=== PATIENT | male | born 1995 | race Caucasian/White ===

== ENCOUNTER 2016-10-30 16:37 | Emergency (ER) | payer BC ==
[2016-10-30 17:00] VITALS: BP 106/71
--- NOTE | 2016-10-30 17:29 | UC ---
Throat Pain/Nasal Duran HPI - HPI Summary HPI Summary: 21 yo male with a 1 day hx of f/c, st, MCELROY, myalgias exposed to strep 5 days ago no n/v/d - History of Current Complaint Chief Complaint: UCGeneralIllness Stated Complaint: BODY ACHES,FEVER,THROAT Time Seen by Provider: 10/30/16 17:23 Hx Obtained From: Patient Onset/Duration: Gradual Onset, Lasting Hours Severity: Moderate Pain Intensity: 4 Pain Scale Used: 0-10 Numeric Cough: None Associated Signs & Symptoms: Positive: Fever - Epiglottits Risk Factors Epiglottis Risk Factors: Negative - Allergies/Home Medications Allergies/Adverse Reactions: Allergies Allergy/AdvReac Type Severity Reaction Status Date / Time No Known Allergies Allergy Verified 10/30/16 16:56 PMH/Surg Hx/FS Hx/Imm Hx Previously Healthy: Yes Other History Of: Negative For: HIV, Hepatitis B, Hepatitis C, Anticoagulant Therapy - Surgical History Surgical History: Yes Surgery Procedure, Year, and Place: appendectomy - Family History Known Family History: Positive: Cardiac Disease Negative: Diabetes - Social History Alcohol Use: Occasionally Substance Use Type: None Smoking Status (MU): Never Smoked Tobacco Have You Smoked in the Last Year: No - Immunization History Most Recent Influenza Vaccination: NONE Most Recent Tetanus Shot: UTD Review of Systems Constitutional: Fever, Chills, Fatigue Skin: Negative Eyes: Negative ENT: Sore Throat Respiratory: Negative Cardiovascular: Negative Gastrointestinal: Negative Genitourinary: Negative Motor: Negative Neurovascular: Negative Musculoskeletal: Negative Neurological: Headache Psychological: Negative All Other Systems Reviewed And Are Negative: Yes Physical Exam Triage Information Reviewed: Yes Appearance: Well-Appearing, No Pain Distress, Well-Nourished Vital Signs: Initial Vital Signs Temp 99 F 10/30/16 16:56 Pulse 90 10/30/16 16:56 Resp 16 10/30/16 16:56 BP 106/71 10/30/16 16:56 Pulse Ox 99 10/30/16 16:56 Vital Signs Reviewed: Yes Eyes: Positive: Conjunctiva Clear ENT: Positive: Hearing grossly normal, Pharyngeal erythema, Tonsillar swelling, Tonsillar exudate. Negative: Nasal congestion, Nasal drainage, Trismus, Muffled /hoarse voice Neck: Positive: Supple, Nontender, Enlarged Nodes @ - ant cerv Respiratory: Positive: Lungs clear, Normal breath sounds, No respiratory distress, No accessory muscle use Cardiovascular: Positive: RRR, No Murmur Musculoskeletal: Positive: ROM Intact, No Edema Neurological: Positive: Alert Psychological Exam: Normal Skin Exam: Normal Throat Pain/Nasal Course/Dx - Course Course Of Treatment: rs (-) - Differential Dx/Diagnosis Provider Diagnoses: acute tonsillitis. exposure to strep throat Discharge - Discharge Plan Condition: Stable Disposition: HOME Prescriptions: Amoxicillin PO (*) [Amoxicillin 875 MG (*)] 875 mg PO BID #20 tab Patient Education Materials: Tonsillitis (ED) Forms: *Work Release Referrals: Robbin Matson MD [Primary Care Provider] - If Needed Additional Instructions: recheck in 3 days if not better
== END 2016-10-30 17:42 | disposition home or self-care (01) ==
LOC: UCCORT 16:37
DX: J03.90 Acute tonsillitis, unspecified (principal); Z20.89 Contact with and (suspected) exposure to other communicable diseases
CPT/HCPCS: 87651; 99212; G0463

== ENCOUNTER 2016-11-02 15:04 | Emergency (ER) | payer BC ==
[2016-11-02 15:51] VITALS: BP 127/83
--- NOTE | 2016-11-02 16:45 | UC ---
Skin Complaint HPI - HPI Summary HPI Summary: Pt reports that he had sudden onset of "blister, pimple" at distal end of penis. Pt reports that he has a new sexual partner and had "rough" intercourse with new partner and sustained a "few" abrasions to the end of the penis. Pt reports that the blister, pimle" was non tender and that he "popped" it and had small amount of serous fluid drained. - History of Current Complaint Chief Complaint: UCGU Time Seen by Provider: 11/02/16 15:46 Stated Complaint: PERSONAL Hx Obtained From: Patient Onset/Duration: Sudden Onset, Still Present Skin Exposure Onset/Duration: Days Ago Timing: Constant Onset Severity: Mild Current Severity: Mild Pain Intensity: 0 Pain Scale Used: 0-10 Numeric Location: Discrete - distal end penis Aggravating: Nothing Alleviating: Nothing Associated Signs & Symptoms: Positive: Drainage - clear Related History: Trauma - rough sexual intercourse - Allergy/Home Medications Allergies/Adverse Reactions: Allergies Allergy/AdvReac Type Severity Reaction Status Date / Time No Known Allergies Allergy Verified 11/02/16 15:51 Review of Systems Constitutional: Negative Skin: Other - abrasions, and drained, blister/pimple Eyes: Negative ENT: Negative Respiratory: Negative Cardiovascular: Negative Gastrointestinal: Negative Genitourinary: Negative Motor: Negative Neurovascular: Negative Musculoskeletal: Negative Neurological: Negative Psychological: Negative All Other Systems Reviewed And Are Negative: Yes PMH/Surg Hx/FS Hx/Imm Hx Previously Healthy: Yes Other History Of: Negative For: HIV, Hepatitis B, Hepatitis C, Anticoagulant Therapy - Surgical History Surgical History: Yes Surgery Procedure, Year, and Place: appendectomy - Family History Known Family History: Positive: Cardiac Disease Negative: Diabetes - Social History Alcohol Use: Occasionally Substance Use Type: None Smoking Status (MU): Never Smoked Tobacco Have You Smoked in the Last Year: No - Immunization History Most Recent Influenza Vaccination: NONE Most Recent Tetanus Shot: UTD Physical Exam Triage Information Reviewed: Yes Appearance: Well-Appearing Vital Signs: Initial Vital Signs Temp 98.4 F 11/02/16 15:43 Pulse 92 11/02/16 15:43 Resp 14 11/02/16 15:43 BP 127/83 11/02/16 15:43 Pulse Ox 100 11/02/16 15:43 Neck exam: Normal Neck: Positive: No Lymphadenopathy Respiratory: Positive: No respiratory distress Musculoskeletal Exam: Normal Neurological Exam: Normal Psychological Exam: Normal Skin Exam: Other - four small healing wounds, non tender, ~2mm in width distal dorsal side of penis. No noted chancre or fluid filled vessicles. Course/Dx - Differential Diagnoses - Skin Complaint Differential Diagnoses: Other - abrasion, syphilis, herpes, - Diagnoses Provider Diagnoses: abrasions- healing wounds. syphilis? Herpes? Discharge - Discharge Plan Condition: Stable Disposition: HOME Patient Education Materials: Safe Sex (ED), Skin Tear (ED) Referrals: Robbin Matson MD [Primary Care Provider] -
[2016-11-04 11:31] LABS: Syphilis Index < 0.1 Index
[2016-11-04 14:44] LABS: Herpes Simplex Virus I IgG AB Negative (Negative); Herpes Simplex Virus II IgG AB Negative (Negative)
== END 2016-11-02 16:32 | disposition home or self-care (01) ==
LOC: UCCORT 15:04
DX: S30.812A Abrasion of penis, initial encounter (principal); Y93.83 Activity, rough housing and horseplay; Y93.59 Activity, other involving other sports and athletics played individually; Y92.003 Bedroom of unspecified non-institutional (private) residence as the place of occurrence of the external cause; Y99.8 Other external cause status
CPT/HCPCS: 36415; 86592; 86695; 86696; 99211; G0463

== ENCOUNTER 2017-01-02 19:37 | Emergency (ER) | payer BC ==
[2017-01-02 19:47] VITALS: BP 136/71
[2017-01-02] MEDS ORDERED: cefTRIAXone VIAL(*) 250 MG VIAL IM ONE (20:57)
[2017-01-02] MEDS ORDERED: Azithromycin TAB* 250 MG PO ONE (20:58)
[2017-01-02] MEDS ORDERED: Lidocaine 1% MPF* 2 ML VIAL INJ ONE (20:58)
--- NOTE | 2017-01-02 22:01 | UC ---
Complaint Male HPI - HPI Summary HPI Summary: YESTERDAY BEGAN HAVING THICK [place]QUE PENILE DISCHARGE, OCCASIONAL DISCOMFORT WITH URINATION. NO FEVER. NO BACK PAIN. NO NEW SEXUAL PARTNERS, BUT CONCERN AND SUSPICION (RUMOR) THAT BOYFRIEND MAY BE CHEATING ON HIM. - History of Current Complaint Chief Complaint: UCSTDScreening Stated Complaint: PERSONAL Time Seen by Provider: 01/02/17 20:46 Hx Obtained From: Patient Onset/Duration: Gradual Onset, Lasting Days, Still Present Timing: Intermittent Severity Initially: Mild Severity Currently: Mild Pain Intensity: 0 Pain Scale Used: 0-10 Numeric Location: Penis Character: Burning Aggravating Factor(s): Voiding Alleviating Factor(s): Nothing Associated Signs And Symptoms: Positive: Dysuria - MILD, Penile Discharge. Negative: Back Pain, Fever, Hematuria, Constipation, Blood in Stool, Rectal Pain , Appetite, Nausea, Vomiting(# Of Episodes =) - Allergies/Home Medications Allergies/Adverse Reactions: Allergies Allergy/AdvReac Type Severity Reaction Status Date / Time No Known Allergies Allergy Verified 01/02/17 19:47 Home Medications: Home Medications NK [No Home Medications Reported] 01/02/17 [History Confirmed 01/02/17] PMH/Surg Hx/FS Hx/Imm Hx Previously Healthy: Yes Other History Of: Negative For: HIV, Hepatitis B, Hepatitis C, Anticoagulant Therapy - Surgical History Surgical History: Yes Surgery Procedure, Year, and Place: appendectomy - Family History Known Family History: Positive: Cardiac Disease Negative: Diabetes - Social History Alcohol Use: Occasionally Substance Use Type: None Smoking Status (MU): Never Smoked Tobacco Have You Smoked in the Last Year: No - Immunization History Most Recent Influenza Vaccination: NONE Most Recent Tetanus Shot: UTD Review of Systems Constitutional: Negative Skin: Negative Eyes: Negative ENT: Negative Respiratory: Negative Cardiovascular: Negative Gastrointestinal: Negative Genitourinary: Dysuria, Other - PENILE DISCHARGE Motor: Negative Neurovascular: Negative Musculoskeletal: Negative Neurological: Negative Psychological: Negative Is Patient Immunocompromised?: No All Other Systems Reviewed And Are Negative: Yes Physical Exam Triage Information Reviewed: Yes Appearance: Well-Appearing, No Pain Distress, Well-Nourished Vital Signs: Initial Vital Signs Temp 97.8 F 01/02/17 19:40 Pulse 83 01/02/17 19:40 Resp 16 01/02/17 19:40 BP 136/71 01/02/17 19:40 Pulse Ox 100 01/02/17 19:40 Vital Signs Reviewed: Yes Eye Exam: Normal ENT Exam: Normal Dental Exam: Normal Neck exam: Normal Neck: Positive: Supple, Nontender, No Lymphadenopathy. Negative: Nuchal Rigidity, Tenderness @, Enlarged Nodes @ Respiratory Exam: Normal Respiratory: Positive: Chest non-tender, Lungs clear, Normal breath sounds, No respiratory distress, No accessory muscle use Cardiovascular Exam: Normal Cardiovascular: Positive: RRR, No Murmur, Pulses Normal, Brisk Capillary Refill Abdominal Exam: Normal Abdomen Description: Positive: Nontender, No Organomegaly, Soft, Other: - NO LESIONS ON PENIS, NO TESTICULAR TENDERNESS; NO DISCHARGE EVIDENT AT TIME OF EXAM. Negative: CVA Tenderness (R), CVA Tenderness (L) Bowel Sounds: Positive: Present Musculoskeletal Exam: Normal Neurological Exam: Normal Psychological Exam: Normal Skin Exam: Normal Skin: Negative: rashes, breakdown Complaint Male Course/Dx - Differential Dx/Diagnosis Differential Diagnosis/HQI/PQRI: Epididymitis, Prostatitis, Pyelonephritis, Trauma, Urinary Tract Infection, Other - STD Provider Diagnoses: PENILE DISCHARGE; STD (GC/CHLYMIDIA) PROPHYLAXIS. Discharge - Discharge Plan Condition: Stable Disposition: HOME Patient Education Materials: Chlamydia (ED), Sexually Transmitted Diseases (ED) , Gonorrhea (ED) Referrals: Robbin Matson MD [Primary Care Provider] -
== END 2017-01-02 21:38 | disposition home or self-care (01) ==
LOC: UCCORT 19:37
DX: R36.9 Urethral discharge, unspecified (principal); Z11.4 Encounter for screening for human immunodeficiency virus [HIV]; Z11.3 Encounter for screening for infections with a predominantly sexual mode of transmission
CPT/HCPCS: 36415; 81003; 86703; 87086; 87491; 87591; 96372; 99212; A9270-GY; G0463; J0696

== ENCOUNTER 2017-03-26 17:37 | Emergency (ER) | payer BC ==
[2017-03-26 18:25] VITALS: BP 104/71
--- NOTE | 2017-03-26 19:53 | UC ---
Throat Pain/Nasal Duran HPI - HPI Summary HPI Summary: Pt c/o sore throat, MCELROY nasal congestion and generalized malaise X 3 days. - History of Current Complaint Chief Complaint: UCGeneralIllness Stated Complaint: ST,MCELROY Time Seen by Provider: 03/26/17 19:46 Hx Obtained From: Patient Onset/Duration: Gradual Onset, Lasting Days, Still Present Severity: Mild Associated Signs & Symptoms: Positive: Dysphagia, Fever - Epiglottits Risk Factors Epiglottis Risk Factors: Negative - Allergies/Home Medications Allergies/Adverse Reactions: Allergies Allergy/AdvReac Type Severity Reaction Status Date / Time No Known Allergies Allergy Verified 01/02/17 19:47 Home Medications: Home Medications Acetaminophen [Acetaminophen Extra Stren] 1,000 mg PO Q6H PRN 03/26/17 [History Confirmed 03/26/17] PMH/Surg Hx/FS Hx/Imm Hx Previously Healthy: Yes Other History Of: Negative For: HIV, Hepatitis B, Hepatitis C, Anticoagulant Therapy - Surgical History Surgical History: Yes Surgery Procedure, Year, and Place: appendectomy - Family History Known Family History: Positive: Cardiac Disease Negative: Diabetes - Social History Occupation: Employed Full-time Lives: With Family Alcohol Use: Occasionally Substance Use Type: None Smoking Status (MU): Never Smoked Tobacco Have You Smoked in the Last Year: No - Immunization History Most Recent Influenza Vaccination: NONE Most Recent Tetanus Shot: UTD Review of Systems Constitutional: Fever, Chills, Fatigue Skin: Negative Eyes: Negative ENT: Sore Throat Respiratory: Negative Cardiovascular: Negative Gastrointestinal: Negative Genitourinary: Negative Motor: Negative Neurovascular: Negative Musculoskeletal: Negative Neurological: Negative Psychological: Negative Is Patient Immunocompromised?: No All Other Systems Reviewed And Are Negative: Yes Physical Exam Triage Information Reviewed: Yes Appearance: Well-Appearing Vital Signs: Initial Vital Signs Temp 98.4 F 03/26/17 18:19 Pulse 75 03/26/17 18:19 Resp 20 03/26/17 18:19 BP 104/71 03/26/17 18:19 Pulse Ox 100 03/26/17 18:19 Eye Exam: Normal ENT Exam: Other ENT: Positive: Pharyngeal erythema Dental Exam: Normal Neck exam: Normal Respiratory Exam: Normal Cardiovascular Exam: Normal Musculoskeletal Exam: Normal Neurological Exam: Normal Psychological Exam: Normal Skin Exam: Normal Throat Pain/Nasal Course/Dx - Differential Dx/Diagnosis Differential Diagnosis/HQI/PQRI: Mononucleosis, Pharyngitis, URI Provider Diagnoses: PHaryngitis. viral syndrome Discharge - Discharge Plan Condition: Stable Disposition: HOME Patient Education Materials: Pharyngitis (ED) Forms: *Work Release Referrals: Robbin Matson MD [Primary Care Provider] - If Needed
== END 2017-03-26 19:58 | disposition home or self-care (01) ==
LOC: UCCORT 17:37
DX: J02.9 Acute pharyngitis, unspecified (principal); B34.9 Viral infection, unspecified
CPT/HCPCS: 87651; 99211; G0463

== ENCOUNTER 2017-04-24 11:09 | Emergency (ER) | payer BC ==
[2017-04-24 11:34] VITALS: BP 124/54
--- NOTE | 2017-04-24 12:53 | UC ---
General HPI - HPI Summary HPI Summary: Had a recent partner who is HIV positive (undetectable viral levels last contact a couple of months ago)-used an at home kit that was HIV - but wants a real test done-Is interested in going back on PreP was getting Prep through Dr. Antony in [place] (baseline labs will be obtained) - History of Current Complaint Chief Complaint: UCGeneralIllness Stated Complaint: PERSONAL Time Seen by Provider: 04/24/17 12:45 Hx Obtained From: Patient Current Severity: None - Allergy/Home Medications Allergies/Adverse Reactions: Allergies Allergy/AdvReac Type Severity Reaction Status Date / Time No Known Allergies Allergy Verified 04/24/17 11:25 PMH/Surg Hx/FS Hx/Imm Hx Previously Healthy: Yes Other History Of: Negative For: HIV, Hepatitis B, Hepatitis C, Anticoagulant Therapy - Surgical History Surgical History: Yes Surgery Procedure, Year, and Place: appendectomy - Family History Known Family History: Positive: Cardiac Disease Negative: Diabetes - Social History Occupation: Employed Full-time Lives: Alone Alcohol Use: Occasionally Substance Use Type: None Smoking Status (MU): Never Smoked Tobacco Have You Smoked in the Last Year: No - Immunization History Most Recent Influenza Vaccination: NONE Most Recent Tetanus Shot: UTD Review of Systems Constitutional: Negative Skin: Negative Eyes: Negative ENT: Negative Respiratory: Negative Cardiovascular: Negative Gastrointestinal: Negative Genitourinary: Negative Motor: Negative Neurovascular: Negative Musculoskeletal: Negative Neurological: Negative Psychological: Negative Is Patient Immunocompromised?: No All Other Systems Reviewed And Are Negative: Yes Physical Exam Triage Information Reviewed: Yes Appearance: Well-Appearing, No Pain Distress, Well-Nourished Vital Signs: Initial Vital Signs Temp 97.9 F 04/24/17 11:17 Pulse 93 04/24/17 11:17 Resp 20 04/24/17 11:17 BP 124/54 04/24/17 11:17 Vital Signs Reviewed: Yes Eye Exam: Normal Eyes: Positive: Conjunctiva Clear ENT Exam: Normal ENT: Positive: Normal ENT inspection, Hearing grossly normal, Pharynx normal. Negative: Trismus, Muffled voice, Hoarse voice, Dental tenderness Dental Exam: Normal Neck exam: Normal Neck: Positive: Supple, Nontender, No Lymphadenopathy Respiratory Exam: Normal Respiratory: Positive: No respiratory distress, No accessory muscle use Cardiovascular Exam: Normal Cardiovascular: Positive: RRR, Pulses Normal, Brisk Capillary Refill Musculoskeletal Exam: Normal Musculoskeletal: Positive: Strength Intact, ROM Intact, No Edema Neurological Exam: Normal Neurological: Positive: Alert, Muscle Tone Normal Psychological Exam: Normal Skin Exam: Normal Course/Dx - Course Course Of Treatment: lab studies as planned, follow with Dr. Cassia RUTH for Pre-p - Differential Dx - Multi-Symptom Provider Diagnoses: HIV Exposure Discharge - Discharge Plan Condition: Stable Disposition: HOME Patient Education Materials: Condom Use (ED), Normal Exam (ED) Forms: *Work Release Referrals: Robbin Matson MD [Primary Care Provider] - As Soon As Possible
[2017-04-24 19:58] LABS: EGFR Non-African American 93.7 (>60)
--- NOTE | 2017-04-25 07:35 | UC ---
- Progress Note Progress Note: BMP is nml - needed for baseline for PCP. Labs were cc'd to Dr Matson. Course/Dx - Course Course Of Treatment: lab studies as planned, follow with Dr. Cassia RUTH for Pre-p
--- NOTE | 2017-04-27 09:03 | UC ---
- Progress Note Progress Note: call patient. rpr for syphyllis is (+). needs [facility]. Course/Dx - Course Course Of Treatment: lab studies as planned, follow with Dr. Cassia RUTH for Pre-p
== END 2017-04-24 13:31 | disposition home or self-care (01) ==
LOC: UCCORT 11:09
DX: Z20.6 Contact with and (suspected) exposure to human immunodeficiency virus [HIV] (principal)
CPT/HCPCS: 36415; 80048; 81003; 86592; 86703; 86803; 87491; 87591; 99211; G0463

== ENCOUNTER 2017-05-27 12:24 | Emergency (ER) | payer BC ==
--- OUTSIDE RECORDS SUMMARY | 2017-05-27 12:41 | XMS REPORT ---
:1995 External Reference #:[id number] [facility] Address [address] [place] [id number] Phone [phone] Care Team Providers Name Role Phone Robbin Matson MD Primary Care Physician Unavailable Payers Type Date Identification Numbers Payment Provider Subscriber Commercial Policy Number: [id number] Santosh Tomlinsoner PayID: [id number] [address] [address] [place] [address] Commercial Effective: 2017 PayID: [id number] Laron Early Problems Description No Active Problems Family History Date Family Member(s) Problem(s) Comments Father Alive Mother Alive Social History Type Date Description Comments Education Currently working on Associates Degree 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 [employer] in [place] Smoking Patient has never smoked Recreational Drug Use Denies Drug Use Recreational Drug Use Teaching provided regarding Naloxone/Narcan Training Available At [facility] Allergies, Adverse Reactions, Alerts Date Description Reaction Status Severity Comments 05/15/2014 NKDA active Medications Medication Date Status Form Strength Qnty SIG Indications Ordering Provider No Active 04/28/2017 Hx Unknown Medications - 04/28/2017 No Active 05/15/2014 Hx Unknown Medications - 05/15/2014 Medications Administered in Office Medication Date Status Form Strength Qnty SIG Indications Ordering Provider Bicillin L-A 04/28 Administered Suspension [id number] 4ml one A53.9 Kathrine it/4ML intramusc flory Ashley NP injection Azithromycin 05/15 Administered Tablets 500mg 2tabs 2 tablets 099.40 by mouth, Bang, - as 1 dose SPLUNK ARCHITECT 05/16 J-Azithromyci 2tabs Administered Injection Tiarra n, 500MG, 01/31 Servies, Qnty SPLUNK ARCHITECT Vital Signs Date Vital Result Comment 04/28/2017 BP Systolic 120 mmHg BP Diastolic 74 mmHg Height 70.25 inches 5'10.25" Weight 163.00 lb BMI (Body Mass Index) 23.2 kg/m2 08/03/2014 BP Systolic 98 mmHg BP Diastolic 64 mmHg Height 70.25 inches 5'10.25" Weight 148.00 lb BMI (Body Mass Index) 21.1 kg/m2 05/15/2014 BP Systolic 110 mmHg BP Diastolic 60 mmHg Results Test Date Test Result H/L Range Note Urinalysis DIP Only.... 08/03/2014 Urine Leukocyte Esterase QN N Urine Nitrite QN N Urine Blood N Urine PH 7.0 Urine Protein Random N Urine Ketone Random tr. Urine Glucose QN Random N Chlam Trach/Neisseria 08/03/2014 C.Trachomatis NOT DETECTED Not Detected 1 Gonorroeae Rna Tma Rna,Tma N.Gonorrhoeae Rna,Tma NOT DETECTED Not Detected 2 Laboratory test 08/03/2014 RPR... non-reactive finding Laboratory test 08/03/2014 HSV 2 Igg Herpeselect 0.34 3 finding AB Laboratory test 08/03/2014 C.Trachomatis Not Detected Not Detected 4 finding Rna,Tma,Rectal Herpes Simplex Virus 08/03/2014 Source GENITAL-PENIS Culture W/RFX Type HSV Culture ISOLATED Not Isolated Laboratory test finding 08/03/2014 HSV Type 2 NOT ISOLATED Not Isolated HSV Type 1 ISOLATED Not Isolated GC Culture,Genital 08/03/2014 Source OTHER-ORAL Final Report SEE NOTE 5 GC Culture,Genital 08/03/2014 Source OTHER-ANAL Final Report SEE NOTE 6 Laboratory test finding 08/03/2014 HIV Rapid... non reactive Laboratory test finding 05/15/2014 C.Trachomatis Not Detected Not Detected 7 Rna,Tma,Rectal Laboratory test finding 05/15/2014 RPR W/Titer and Conf NON-REACTIVE Non- Reactive 8 RFX GC Culture,Genital 05/15/2014 Source OTHER-ORAL Final Report SEE NOTE 9 Chlam Trach/Neisseria 05/15/2014 C.Trachomatis NOT DETECTED Not Detected 10 Gonorroeae Rna Tma Rna,Tma N.Gonorrhoeae Rna,Tma NOT DETECTED Not Detected 11 Laboratory test finding 05/15/2014 HIV Rapid... negative 1 This test was performed using the APTIMA COMBO2(R) Assay (GEN-PROBE(R). The analytical performance characteristics of this assay, when used to test SurePath(R) specimens have been determined by [facility]. 2 This test was performed using the APTIMA COMBO2(R) Assay (GEN-PROBE(R). The analytical performance characteristics of this assay, when used to test SurePath(R) specimens have been determined by [facility]. 3 INDEX INTERPRETATION ----- LESS THAN 0.90 NEGATIVE FOR ANTIBODIES TO HSV-2 IGG 0.90 - 1.10 EQUIVOCAL GREATER THAN 1.10 POSITIVE This assay utilizes recombinant type-specific antigens to differentiate HSV-1 from HSV-2 infections. A positive result cannot distinguish between recent and past infection. If recent HSV infection is suspected but the results are negative or equivocal, the assay should be repeated in 4-6 weeks. The performance characteristics of the assay have not been established for pediatric populations, immunocompromised patients or screening. 4 This test was performed using the APTIMA COMBO2(R) Assay (GEN-PROBE(R)). The performance characteristics of this assay have been determined by [facility]. Performance characteristics refer to the analytical performance of the test. 5 NO NEISSERIA GONORRHOEAE ISOLATED. 6 NO NEISSERIA GONORRHOEAE ISOLATED. 7 This test was performed using the APTIMA COMBO2(R) Assay (GEN-PROBE(R)). The performance characteristics of this assay have been determined by [facility]. Performance characteristics refer to the analytical performance of the test. 8 The RPR is a gdj-qlocoyzpal-kjuudsqj test; therefore a treponemal-specific confirmatory test should be performed unless prior syphilis infection has been documented for the patient. 9 NO NEISSERIA GONORRHOEAE ISOLATED. 10 This test was performed using the APTIMA COMBO2(R) Assay (GEN-PROBE(R). The analytical performance characteristics of this assay, when used to test SurePath(R) specimens have been determined by [facility]. 11 This test was performed using the APTIMA COMBO2(R) Assay (GEN-PROBE(R). The analytical performance characteristics of this assay, when used to test SurePath(R) specimens have been determined by [facility]. 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 Reviewed use of, side effects and precautions of abx use and patient states understanding. Patient tolerated injection well. Instructed patient to abstain from ic x 2 weeks then use condoms consistently. Condoms given to patient. Reviewed possible side effects of treatment and instructed patient to call for any concerns. Reviewed syphilis diagnosis, treatment, transmission and prevention. Reviewed s/s of syphilis including neurosyphilis and instructed patient to report any new sx immediately. Patient states understanding. Gave andreviewed Syphilis handout with patient.Follow up: 3 months for repeat titers. Patient states that he plans to follow up with Dr. Matson for this.Z30.09 Encounter for oth general coun and advice on contraceptionComments:Patient currently only has same sex partners.Counseled patient on importance of consistent and correct condom use to avoid unintended if he has a female partner. Encouraged patient to discussbirth control with sexual partners. Patient stated understanding.
[2017-05-27 13:31] VITALS: BP 109/73
--- NOTE | 2017-05-27 13:39 | UC ---
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 Signs & Symptoms: Positive: Cough, Fever, Headache, Nausea - Allergy/Home Medications Allergies/Adverse Reactions: Allergies Allergy/AdvReac Type Severity Reaction Status Date / Time No Known Allergies Allergy Verified 05/27/17 13:27 Home Medications: Home Medications RX: Tenofovir/Emtricitabine(*) [Truvada*] 1 tab PO DAILY 05/27/17 [History Confirmed 05/27/17] PMH/Surg Hx/FS Hx/Imm Hx Previously Healthy: Yes Other History Of: Negative For: HIV, Hepatitis B, Hepatitis C, Anticoagulant Therapy - Surgical History Surgical History: Yes Surgery Procedure, Year, and Place: Appendectomy, ~2014, [place] - Family History Known Family History: Positive: Cardiac Disease Negative: Diabetes - Social History Alcohol Use: Occasionally Substance Use Type: None Smoking Status (MU): Never Smoked Tobacco Have You Smoked in the Last Year: No - Immunization History Most Recent Influenza Vaccination: NONE Most Recent Tetanus Shot: UTD Review of Systems Constitutional: Fever, Chills Skin: Negative Eyes: Negative ENT: Sore Throat, Other - occasional ring in ears Respiratory: Cough, Other - no sob or wheezing Cardiovascular: Other - anterior chest is sore with cough only Gastrointestinal: Nausea, Other - no v/d Genitourinary: Negative Neurological: Headache, Other - no neck pain Is Patient Immunocompromised?: No All Other Systems Reviewed And Are Negative: Yes Physical Exam Triage Information Reviewed: Yes Appearance: Other: - appears ill but not toxic Vital Signs: Initial Vital Signs Temp 100.4 F 05/27/17 13:25 Pulse 106 05/27/17 13:25 Resp 18 05/27/17 13:25 BP 109/73 05/27/17 13:25 Pulse Ox 99 05/27/17 13:25 Vital Signs Reviewed: Yes Eye Exam: Normal ENT: Positive: Pharyngeal erythema, TMs normal. Negative: Nasal drainage, Tonsillar swelling, Tonsillar exudate, Trismus, Muffled voice, Hoarse voice Neck exam: Normal Neck: Positive: Supple, Nontender, No Lymphadenopathy. Negative: Nuchal Rigidity Respiratory: Positive: Lungs clear, Normal breath sounds, No respiratory distress Cardiovascular: Positive: RRR, No Murmur Abdomen Description: Positive: Nontender, No Organomegaly, Soft Bowel Sounds: Positive: Present Neurological Exam: Normal Neurological: Positive: Alert Skin Exam: Normal Course/Dx - Course Course Of Treatment: Non toxic, influenza A + thus will tx tamiflu - Differential Dx - Multi-Symptom Provider Diagnoses: + for influenza A Discharge - Discharge Plan Condition: Stable Disposition: HOME Prescriptions: Oseltamivir SUSP 75 MG dose* [Tamiflu SUSP 75 MG dose*] 75 mg PO BID #10 tab Patient Education Materials: Influenza (DC) Forms: *Work Release Referrals: Robbin Matson MD [Primary Care Provider] - 5 Days
== END 2017-05-27 14:28 | disposition home or self-care (01) ==
LOC: UCCORT 12:24
DX: J10.1 Influenza due to other identified influenza virus with other respiratory manifestations (principal)
CPT/HCPCS: 87502; 99212; G0463

== ENCOUNTER 2018-07-07 16:44 | Emergency (ER) | payer BC ==
[2018-07-07 17:00] VITALS: BP 132/85
--- NOTE | 2018-07-07 17:05 | UC ---
Complaint Male HPI - HPI Summary HPI Summary: 22 yo male with urethral d/c (thick) x 2 days hx of gc, chlamdyia and herpes no f/c no n/v/d no lesions - History of Current Complaint Chief Complaint: UCGeneralIllness Stated Complaint: PERSONAL Hx Obtained From: Patient Onset/Duration: Gradual Onset, Lasting Days Timing: Constant Severity Initially: Mild Severity Currently: None Pain Intensity: 0 Pain Scale Used: 0-10 Numeric Associated Signs And Symptoms: Positive: Penile Discharge - Allergies/Home Medications Allergies/Adverse Reactions: Allergies Allergy/AdvReac Type Severity Reaction Status Date / Time No Known Allergies Allergy Verified 07/07/18 16:56 Home Medications: Home Medications ValACYclovir (*) [Valtrex 500 mg (*)] 1 cap DAILY 07/07/18 [History Confirmed ] PMH/Surg Hx/FS Hx/Imm Hx Previously Healthy: Yes Other History Of: Negative For: HIV, Hepatitis B, Hepatitis C, Anticoagulant Therapy - Surgical History Surgical History: Yes Surgery Procedure, Year, and Place: Appendectomy, ~2014, [place] - Family History Known Family History: Positive: Cardiac Disease Negative: Diabetes - Social History Alcohol Use: Occasionally Substance Use Type: None Smoking Status (MU): Never Smoked Tobacco Have You Smoked in the Last Year: No - Immunization History Most Recent Influenza Vaccination: NONE Most Recent Tetanus Shot: UTD Review of Systems All Other Systems Reviewed And Are Negative: Yes Constitutional: Positive: Negative Skin: Positive: Negative Eyes: Positive: Negative ENT: Positive: Negative Respiratory: Positive: Negative Cardiovascular: Positive: Negative Gastrointestinal: Positive: Negative Genitourinary: Positive: Vaginal/Penile Discharge Motor: Positive: Negative Neurovascular: Positive: Negative Musculoskeletal: Positive: Negative Neurological: Positive: Negative Psychological: Positive: Negative Physical Exam Triage Information Reviewed: Yes Appearance: Well-Appearing, No Pain Distress, Well-Nourished Vital Signs: Initial Vital Signs Temp 98 F 07/07/18 16:57 Pulse 74 07/07/18 16:57 Resp 16 07/07/18 16:57 BP 132/85 07/07/18 16:57 Pulse Ox 100 07/07/18 16:57 Vital Signs Reviewed: Yes Eyes: Positive: Conjunctiva Clear ENT: Negative: Nasal congestion, Nasal drainage, Trismus, Muffled voice, Hoarse voice Neck: Positive: Supple, Nontender Respiratory: Positive: Lungs clear, Normal breath sounds, No respiratory distress Cardiovascular: Positive: RRR, No Murmur, Pulses Normal Male Genital Exam: Positive: Normal Genitalia Musculoskeletal: Positive: ROM Intact, No Edema Neurological: Positive: Alert Psychological Exam: Normal Skin Exam: Normal Complaint Male Course/Dx - Course Course Of Treatment: declines any other STD testing other than gc/chlam was on PrEP - Differential Dx/Diagnosis Provider Diagnosis: Urethritis Discharge - Sign-Out/Discharge Documenting (check all that apply): Patient Departure All imaging exams completed and their final reports reviewed: No Studies - Discharge Plan Condition: Stable Disposition: HOME Patient Education Materials: Nonspecific Urethritis in Men (ED) Referrals: Robbin Matson MD [Primary Care Provider] - If Needed Additional Instructions: tests pending - Billing Disposition and Condition Condition: STABLE Disposition: Home
[2018-07-07] MEDS ORDERED: Azithromycin TAB* 250 MG PO ONE (17:15)
[2018-07-07] MEDS ORDERED: Lidocaine 1% MPF* 2 ML VIAL INJ ONE (17:16)
[2018-07-07] MEDS ORDERED: cefTRIAXone VIAL(*) 250 MG VIAL IM ONE (17:16)
== END 2018-07-07 17:41 | disposition home or self-care (01) ==
LOC: UCCORT 16:44
DX: N34.2 Other urethritis (principal)
CPT/HCPCS: 87491; 87591; 96372; 99212; A9270-GY; G0463; J0696

== ENCOUNTER 2018-09-01 18:37 | Emergency (ER) | payer BC ==
[2018-09-01 19:46] VITALS: BP 113/69
--- NOTE | 2018-09-01 20:11 | UC ---
Headache HPI - HPI Summary HPI Summary: Pt presents with c/o MCELROY and "foggy feeling" that began this morning. Pt states that he has had a s lot of "stress" at work recently. Pt states he has hx of migraines and stated that he stayed home today and slept to "feel better". Pt is also requesting STI testing as he is beginning a relationship with a new partner. P tis not having any STI symptoms. - History Of Current Complaint Chief Complaint: UCGeneralIllness Stated Complaint: HEADACHE,NAUSEA,SCRATCHY EYES Time Seen by Provider: 09/01/18 20:03 Hx Obtained From: Patient Onset/Duration: Sudden Onset, Resolved Onset Of Symptoms: Gradual, Resolved Initially Headache Was: Moderate Currently Pain Is: Mild Pain Intensity: 0 Timing: Constant Character: Dull Location of Headache: Temporal Aggravating Factor(s): Nothing Allevating Factor(s): Rest Associated Signs And Symptoms: Positive: Negative - Risk Factors SAH Risk Factors: Negative SDH Risk Factors: Male - Allergies/Home Medications Allergies/Adverse Reactions: Allergies Allergy/AdvReac Type Severity Reaction Status Date / Time No Known Allergies Allergy Verified 09/01/18 19:46 PMH/Surg Hx/FS Hx/Imm Hx Previously Healthy: Yes Other History Of: Negative For: HIV, Hepatitis B, Hepatitis C, Anticoagulant Therapy - Surgical History Surgical History: Yes Surgery Procedure, Year, and Place: Appendectomy, ~2014, [place] - Family History Known Family History: Positive: Cardiac Disease Negative: Diabetes - Social History Occupation: Employed Full-time Lives: With Family Alcohol Use: Occasionally Substance Use Type: None Smoking Status (MU): Never Smoked Tobacco Have You Smoked in the Last Year: No - Immunization History Most Recent Influenza Vaccination: NONE Most Recent Tetanus Shot: UTD Vaccination Up to Date: Yes Review of Systems All Other Systems Reviewed And Are Negative: Yes Constitutional: Positive: Fatigue Skin: Positive: Negative Eyes: Positive: Negative ENT: Positive: Nasal Discharge Respiratory: Positive: Negative Cardiovascular: Positive: Negative Gastrointestinal: Positive: Negative Genitourinary: Positive: Negative Motor: Positive: Negative Neurovascular: Positive: Negative Musculoskeletal: Positive: Arthralgia Neurological: Positive: Headache Psychological: Positive: Negative Is Patient Immunocompromised?: No Physical Exam Triage Information Reviewed: Yes Appearance: Well-Appearing Vital Signs: Initial Vital Signs Temp 98.5 F 09/01/18 19:44 Pulse 72 05/15/19 19:44 Resp 16 09/01/18 19:44 BP 113/69 09/01/18 19:44 Pulse Ox 99 09/01/18 19:44 Vital Signs Reviewed: Yes Eye Exam: Normal ENT: Positive: Nasal congestion, TM bulging Dental Exam: Normal Neck exam: Normal Respiratory Exam: Normal Cardiovascular Exam: Normal Musculoskeletal Exam: Normal Neurological Exam: Normal Psychological Exam: Normal Skin Exam: Normal Headache Course/Dx - Differential Dx/Diagnosis Differential Diagnosis/HQI/PQRI: Migraine, Tension Headache Provider Diagnosis: Headache, Serous otitis media Discharge - Sign-Out/Discharge Documenting (check all that apply): Patient Departure All imaging exams completed and their final reports reviewed: No Studies - Discharge Plan Condition: Stable Disposition: HOME Patient Education Materials: Acute Headache (ED), Serous Otitis Media (ED) Forms: *Work Release Referrals: Robbin Matson MD [Primary Care Provider] - As Soon As Possible Additional Instructions: Please follow up with your PCP as soon as possible for health care screening and maintenance. - Billing Disposition and Condition Condition: STABLE Disposition: Home - Attestation Statements Provider Attestation: This patient was not seen by me. I was available for consult.
--- NOTE | 2018-09-03 07:40 | UC ---
- Progress Note Progress Note: IgG positive syphilis screen (IgM antibodies not tested). Pending RPR. HIV negative. VERY important to follow up with PCP as soon as possible for further testing. Unclear at this time if or what type of treatment indicated. As such, pcp will be helpful. Safe sex barrior precautions. Course/Dx - Diagnoses Provider Diagnoses: Headache, Serous otitis media Discharge - Sign-Out/Discharge Documenting (check all that apply): Post-Discharge Follow Up All imaging exams completed and their final reports reviewed: No Studies - Discharge Plan Condition: Stable Disposition: HOME Patient Education Materials: Acute Headache (ED), Serous Otitis Media (ED) Forms: *Work Release Referrals: Robbin Matson MD [Primary Care Provider] - As Soon As Possible Additional Instructions: Please follow up with your PCP as soon as possible for health care screening and maintenance. - Billing Disposition and Condition Condition: STABLE Disposition: Home
[2018-09-03 11:34] LABS: RPR Nonreactive (Nonreactive)
[2018-09-03 12:44] LABS: Neisseria gonorrhoeae (GC) RNA Negative (Negative)
[2018-09-06 17:42] LABS: T.Pallidum TP-PA Positive (Negative)
== END 2018-09-01 20:28 | disposition home or self-care (01) ==
LOC: UCCORT 18:37
DX: R51 Headache (principal); H65.92 Unspecified nonsuppurative otitis media, left ear
CPT/HCPCS: 36415; 86592; 86703; 86780; 87491; 87591; 99212; G0463

== ENCOUNTER 2019-04-16 19:48 | Emergency (ER) | payer BC ==
[2019-04-16 20:03] VITALS: BP 116/81
[2019-04-16] MEDS ORDERED: Azithromycin TAB* 250 MG PO ONE (20:12)
[2019-04-16] MEDS ORDERED: cefTRIAXone VIAL(*) 250 MG VIAL IM ONE (20:12)
[2019-04-16] MEDS ORDERED: Lidocaine 1% MPF ** 5 ML VIAL IM ONE ×2 (20:12→20:23)
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
[2019-04-16] MEDS ORDERED: cefTRIAXone VIAL(*) 1,000 MG VIAL IM ONE (20:21)
[2019-04-17 12:35] LABS: HIV 4th Generation Nonreactive (Nonreactive)
[2019-04-17 12:53] LABS: Hepatitis C Antibody Negative (Negative)
[2019-04-18 13:49] LABS: Chlamydia trachomatis NAA Negative (Negative); Neisseria gonorrhoeae (GC) NAA Negative (Negative)
--- NOTE | 2019-04-19 09:28 | UC ---
- Progress Note Progress Note: Patient's gonorrhea and chlamydia tests came back negative. Recommend using condoms for all future sexual encounters Course/Dx - Diagnoses Provider Diagnoses: Urethritis, Screen for STD (sexually transmitted disease) Discharge ED - Sign-Out/Discharge Documenting (check all that apply): Post-Discharge Follow Up All imaging exams completed and their final reports reviewed: No Studies - Discharge Plan Condition: Stable Disposition: HOME Patient Education Materials: Nonspecific Urethritis in Men (ED) Referrals: Robbin Matson MD [Primary Care Provider] - 1 Week Additional Instructions: lab work pending - Billing Disposition and Condition Condition: STABLE Disposition: Home
[2019-04-19 15:16] LABS: RPR Nonreactive (Nonreactive)
== END 2019-04-16 21:13 | disposition home or self-care (01) ==
LOC: UCCORT 19:48
DX: Z11.3 Encounter for screening for infections with a predominantly sexual mode of transmission (principal); N34.2 Other urethritis
CPT/HCPCS: 36415; 86592; 86780; 86803; 87389; 87491; 87591; 96372; 99212; A9270-GY; G0463; J0696

== ENCOUNTER 2019-08-10 11:08 | Emergency (ER) | payer BC, OTHER ==
[2019-08-10 11:47] VITALS: BP 123/73
[2019-08-10 12:00] LABS: Influenza A Molecular Negative (Negative); Influenza B Molecular Negative (Negative)
--- NOTE | 2019-08-10 12:16 | UC ---
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) no cp no f/c no loss of smell or taste nodiarrhea no rash - History of Current Complaint Chief Complaint: UCRespiratory Stated Complaint: MCELROY, BODYACHES,SOB (ISO) Time Seen by Provider: 08/10/19 11:20 Hx Obtained From: Patient Onset/Duration: Gradual Onset, Lasting Hours Timing: Constant Severity Initially: Mild Severity Currently: Moderate Pain Intensity: 3 Pain Scale Used: 0-10 Numeric Character: Cough: Nonproductive Aggravating Factors: Nothing Alleviating Factors: Nothing - Allergies/Home Medications Allergies/Adverse Reactions: Allergies Allergy/AdvReac Type Severity Reaction Status Date / Time No Known Allergies Allergy Verified 08/10/19 11:18 Home Medications: Home Medications ValACYclovir (*) [Valtrex 500 mg (*)] 1 cap PO DAILY 07/07/18 [History Confirmed 08/10/19] PMH/Surg Hx/FS Hx/Imm Hx Previously Healthy: Yes Other History Of: Negative For: HIV, Hepatitis B, Hepatitis C, Anticoagulant Therapy - Surgical History Surgical History: Yes Surgery Procedure, Year, and Place: Appendectomy, ~2014, [place] - Family History Known Family History: Positive: Cardiac Disease, Hypertension Negative: Diabetes - Social History Alcohol Use: Occasionally Substance Use Type: None Smoking Status (MU): Never Smoked Tobacco Have You Smoked in the Last Year: No - Immunization History Most Recent Influenza Vaccination: NONE Most Recent Tetanus Shot: UTD Vaccination Up to Date: Yes Review of Systems All Other Systems Reviewed And Are Negative: Yes Constitutional: Positive: Fatigue Skin: Positive: Negative Eyes: Positive: Negative ENT: Positive: Negative, Other - post nasal drip Respiratory: Positive: Shortness Of Breath - with exertion Cardiovascular: Positive: Negative Gastrointestinal: Positive: Negative Genitourinary: Positive: Negative Motor: Positive: Negative Neurovascular: Positive: Negative Musculoskeletal: Positive: Negative Neurological/Mental Status: Positive: Headache Psychological: Positive: Negative Physical Exam Triage Information Reviewed: Yes Appearance: Well-Appearing, No Pain Distress, Well-Nourished Vital Signs: Initial Vital Signs Temp 98.7 F 08/10/19 11:46 Pulse 86 04/22/20 11:46 Resp 16 08/10/19 11:46 BP 123/73 08/10/19 11:46 Pulse Ox 98 08/10/19 11:46 Vital Signs Reviewed: Yes Eyes: Positive: Conjunctiva Clear ENT: Positive: Hearing grossly normal, Nasal congestion, TMs normal, Uvula midline. Negative: Nasal drainage, Tonsillar swelling, Tonsillar exudate, Trismus, Muffled voice, Hoarse voice, Dental tenderness, Sinus tenderness Dental Exam: Normal Neck: Positive: Supple, Nontender, No Lymphadenopathy Respiratory: Positive: Lungs clear, Normal breath sounds, No respiratory distress, No accessory muscle use Cardiovascular: Positive: RRR, No Murmur Abdomen Description: Positive: Nontender, No Organomegaly, Soft Musculoskeletal: Positive: ROM Intact, No Edema Neurological: Positive: Alert Psychological Exam: Normal Skin Exam: Normal Diagnostics - Laboratory Lab Results: influenza (-) - Radiology No standard instances Radiology Interpretation Completed By: Radiologist Summary of Radiographic Findings: NAD Respiratory Course/Dx - Differential Dx/Diagnosis Provider Diagnosis: Viral syndrome, Educated about COVID-19 virus infection Discharge ED - Sign-Out/Discharge Documenting (check all that apply): Patient Departure All imaging exams completed and their final reports reviewed: No Studies - Discharge Plan Condition: Stable Disposition: HOME Forms: COVID-19 Tested & Isolation Referrals: Robbin Matson MD [Primary Care Provider] - If Needed (if not better) Additional Instructions: influenza negative CXR- normal rest fluids tylenol TO ER FOR NEW OR WORSENING SYMPTOMS RECHECK IN THREE DAYS IF NOT BETTER - Billing Disposition and Condition Condition: STABLE Disposition: Home
== END 2019-08-10 12:31 | disposition home or self-care (01) ==
LOC: UCCORT 11:08
DX: B34.9 Viral infection, unspecified (principal); Z20.828 Contact with and (suspected) exposure to other viral communicable diseases
CPT/HCPCS: 71046; 87635; 99211; G0463; U0003